=== PATIENT | male | born 1960 | race Caucasian/White ===

== ENCOUNTER → 2022-03-31 08:51 | Outpatient (CLI) | payer OTHER, SELFPAY ==
--- NOTE | ~2022-03-31 | MR_ITS ---
EXAMINATION: MR ankle RT wo con DATE: 03/31/2022 09:48 INDICATION: Right ankle pain. Right ankle injury. Subacute right ankle sprain. TECHNIQUE: Magnetic resonance imaging (MRI) of the right ankle was performed without intravenous cont rast. Sequences included sagittal PD-weighted FS FSE, sagittal PD-weighted FSE, coronal PD-weighted F S FSE, coronal PD-weighted FSE, axial PD-weighted FS FSE, and axial PD-weighted FSE. COMPARISON: None. FINDINGS: Medial ankle ligaments: There are changes of prior sprain involving deltoid ligament characterized by thickening and increase d signal involving the superficial component and increased signal and some discontinuous fibers invol ving the deep component. Lateral ankle ligaments: There are changes of prior lateral ankle sprain characterized by thickening and increased signal invo lving anterior talofibular ligament, calcaneofibular ligament, and anterior tibiofibular ligament. Po sterior tibiofibular ligament and posterior talofibular ligament are intact. Tendons: There is a longitudinal split tear of peroneus brevis tendon. Peroneus longus tendon is normal. The a nterior ankle tendons are normal. The medial ankle tendons are normal. There is mild Achilles tendino naomie. Plantar fascia: There is thickening and increased signal involving the central band of plantar fascia, consistent wit h fasciitis. There is an enthesophyte at the calcaneal attachment. Bones/other: Bone alignment is normal. No fracture. The talar dome is intact. There is mild edema-like marrow sign al intensity involving the medial and lateral malleoli, likely stress reaction. There is a dorsal spu r at the talar neck with edema-like marrow signal intensity in anterior tibial plafond. Fluid: There are small ankle and subtalar joint effusions. Fluid around the flexor hallucis longus tendon is not out of proportion to the degree of joint fluid. IMPRESSION: 1. Changes of medial and lateral ankle sprains. 2. Spur of the dorsal talar neck and edema-like marrow signal intensity in the anterior tibial plafon d, which may be seen with anterior ankle impingement. 3. Longitudinal split tear of peroneus brevis tendon. 4. Small ankle and subtalar joint effusions. 5. Plantar fasciitis. Reviewed, dictated and finalized at location A. IMPRESSION: 1. Changes of medial and lateral ankle sprains. 2. Spur of the dorsal talar neck and edema-like marrow signal intensity in the anterior tibial plafond, which may be seen with anterior ankle impingement. 3. Longitudinal split tear of peroneus brevis tendon. 4. Small ankle and subtalar joint effusions. 5. Plantar fasciitis.
== END ==
PROVIDERS: PCP Internal Medicine; Visit Provider Podiatrist Foot & Ankle Surgery
DX: S93.491A Sprain of other ligament of right ankle, initial encounter (principal); M77.8 Other enthesopathies, not elsewhere classified; S96.811A Strain of other specified muscles and tendons at ankle and foot level, right foot, initial encounter; M25.471 Effusion, right ankle; M72.2 Plantar fascial fibromatosis
CPT/HCPCS: 73721

== ENCOUNTER 2022-10-11 15:05 | Outpatient (CLI) | payer OTHER, SELFPAY ==
[2022-10-11 15:33] LABS: Basophils Absolute Auto 0.1 K/mm3 (0.0-0.1); Basophils Percent Auto 0.7 % (0.2-1.2); Eosinophils Absolute Auto 0.3 K/mm3 (0-0.3); Eosinophils Percent Auto 3.5 % (0-4.4); Hematocrit 48.9 % (42.0-52.0); Hemoglobin 17.4 g/dL (14.0-18.0); Immature Granulocyte Absolute 0.06 K/mm3 (0.00-0.031); Immature Granulocyte Percent A 0.7 % (0-0.5); Lymphocytes Percent Auto 32.3 % (18.3-44.2); Mean Corpuscular HGB Conc 35.6 g/dl (32-36); Mean Corpuscular Hemoglobin 32.8 pg (26-34); Mean Corpuscular Volume 92.3 fl (80-100); Mean Platelet Volume 9.4 fl (7.4-10.4); Monocytes Absolute Auto 0.8 K/mm3 (0.1-0.6); Monocytes Percent Auto 9.1 % (2.6-8.5); Neutrophils Absolute Auto 4.5 K/mm3 (1.3-6.7); Neutrophils Percent Auto 53.7 % (45.5-73.1); Platelet Count Result 188 k/mm3 (150-375); Red Cell Distribution Width 12.4 % (11.5-14.5); White Blood Count 8.4 K/mm3 (4.5-10.0)
[2022-10-11 15:49] LABS: Alanine Aminotransferase 18 U/L (6-50); Albumin Level 4.3 g/dL (3.5-5.1); Alkaline Phosphatase 79 U/L (38-126); Anion Gap 4 mmol/L (8-16); Aspartate Amino Transferase 19 U/L (17-59); Bilirubin,Total 1.6 mg/dL (0.2-1.3); Blood Urea Nitrogen 19 mg/dL (9-20); Calcium 8.8 mg/dL (8.4-10.2); Carbon Dioxide 32 mmol/L (22-30); Chloride 100 mmol/L (98-107); Estimated Glomerular Filt Rate 57; Glucose 86 mg/dL (65-110); Potassium 3.4 mmol/L (3.4-5.0); Sodium 136 mmol/L (137-145); Uric Acid 7.8 mg/dL (3.5-8.5)
== END 2022-10-11 15:06 | disposition home or self-care (01) ==
LOC: ANHLAB 15:07
PROVIDERS: PCP Internal Medicine; Visit Provider Podiatrist Foot & Ankle Surgery
DX: M10.9 Gout, unspecified (principal); M25.50 Pain in unspecified joint
CPT/HCPCS: 36415; 80053; 84550; 85025